=== PATIENT | male | born 1990 | race Hispanic/Latino ===

== ENCOUNTER 2024-09-20 17:01 | Emergency (ER) | payer OTHER, SELFPAY ==
[2024-09-20 17:12] VITALS: BP 137/83; PULSE 74; RESP 14; TEMP 36.6; O2SAT 99; BMI 25.8
--- NOTE | 2024-09-20 17:44 | ED_ITS ---
HPI - Back Pain/Injury General Chief Complaint: Back Pain/Injury Stated Complaint: back pain radiating to groin Time Seen by Provider: 09/20/24 17:23 Source: patient History of Present Illness HPI Narrative: Mr. 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 Patient states a few weeks ago around Thanksgiving while doing CrossFit he injured his left lower back. States that the pain has persisted however about 1 week ago the pain started radiating to his left lower quadrant of his abdomen/groin/scrotum. He denies any swelling or tenderness of his testicles but the pain does linger in the groin region. And his stool when he wipes intermittently over the last few months however it has been constant over the last few days. Denies nausea, vomiting, fevers, chills, dysuria, hematuria, penile discharge, penile bleeding. No numbness or tingling in the groin/saddle anesthesia. Patient denies straining or pain during bowel movement. Related Data Previous Rx's Medication Instructions Recorded methylprednisolone 4 mg tablets in See Rx Instructions PO .COMPLEX 09/20/24 a dose pack (Medrol (Mushtaq)) #21 ea Allergies Allergy/AdvReac Type Severity Reaction Status Date / Time No Known Drug Allergies Allergy Verified 09/20/24 17:11 Review of Systems Review of Systems ROS Unobtainable: All systems reviewed & are unremarkable except as noted in HPI and below Patient History Social History Smoking Status: Unknown if ever smoked Smoking Status: Unknown if ever smoked Exam Narrative Exam Narrative: GENERAL: 34 year old patient appears stated age. Well-developed patient, in no acute distress. HEAD: Atraumatic. Normocephalic. EYES: Extraocular motions intact. No scleral icterus. No injection or drainage. ENT: Nose without bleeding, purulent drainage. NECK: Trachea midline. Cervical ROM intact. CARDIOVASCULAR: Regular rate and rhythm. RESPIRATORY: ?Nonlabored respirations. ?Speaking in clear, full sentences. ?Clear to auscultation. Breath sounds equal bilaterally. No wheezes, rales, or rhonchi. ? GASTROINTESTINAL: Abdomen soft, non-tender, nondistended. : Patient gave verbal consent for exam. No external anal fissures or hemorrhoids. No testicular tenderness, epididymis tenderness, swelling or overlying skin changes. Normal circumcised penis. EXTREMITIES: No edema or joint tenderness. BACK: No CVA tenderness. Patient does have muscle spasm of the left lumbar paraspinal muscle region. No midline bony tenderness. NEURO: AOx3. ?Clear speech. ?Moves all 4 extremities appropriately. SKIN: No rash or erythema of visible areas Initial Vital Signs Initial Vital Signs: Vital Signs Temperature 97.9 F 09/20/24 17:12 Pulse Rate 74 09/20/24 17:12 Respiratory Rate 14 09/20/24 17:12 Blood Pressure 137/83 09/20/24 17:12 Pulse Oximetry 99 09/20/24 17:12 Oxygen Delivery Method Room Air 09/20/24 17:12 Course Orders Ordered: ED Orders 09/20/24 17:59 CT abdomen pelvis w con Stat 09/20/24 18:04 CBC Auto Diff [Complete Blood Count AUTO DIFF] Stat CMP [Comprehensive Metabolic Panel] Stat Lipase Stat Discontinued Medications Ketorolac Tromethamine (Ketorolac 30 Mg/Ml Vial) 15 mg IV NOW ONE Stop: 09/20/24 18:00 Last Admin: 09/20/24 18:19 Dose: 15 mg Documented By: TONY Vital Signs Vital signs: Vital Signs - 8 hr 09/20/24 19:28 Pulse Rate 65 Respiratory Rate 16 Blood Pressure 123/77 Pulse Oximetry 99 Oxygen Delivery Method Room Air MDM - Back Pain/Injury Lab Data 09/20/24 18:04 09/20/24 18:04 Labs: Lab Results 09/20/24 Range/Units 18:04 WBC 6.7 (4.5-11.0) X10^3/uL RBC 4.75 (4.5-5.9) X10^6/uL Hgb 14.4 (13.5-17.5) g/dL Hct 43.0 (41-53) % MCV 90.6 (80-100) fL MCH 30.3 (26-34) PG MCHC 33.5 (30-36) % RDW 13.6 (11.6-14.8) % Plt Count 298 (150-400) X10^3/uL Neut % (Auto) 47.5 L (50-75) % Lymph % (Auto) 41.8 H (25-40) % [place] % (Auto) 6.3 (3-14) % Eos % (Auto) 3.4 (2-4) % Baso % (Auto) 1.0 (0-2) % Neut # (Auto) 3200 (3344-3478) /uL Lymph # (Auto) 2800 (2505-6158) /uL [place] # (Auto) 400 (0-900) /uL Eos # (Auto) 200 (0-450) /uL Baso # (Auto) 100 (0-100) /uL Sodium 140 (137-145) mmol/L Potassium 3.9 (3.4-5.1) mmol/L Chloride 104 (98-107) mmol/L Carbon Dioxide 28 (22-32) mmol/L BUN 13 (9-20) mg/dL Creatinine 1.02 (0.66-1.25) mg/dL Estimated GFR > 60 (>60) mL/min BUN/Creatinine Ratio 12.7 (6-22) Glucose 86 (70-100) mg/dL Calcium 8.7 (8.4-10.2) mg/dL Total Bilirubin 0.5 (0.2-1.3) mg/dL AST 40 (17-59) IU/L ALT 63 H (<50) IU/L Alkaline Phosphatase 72 (38-126) U/L Total Protein 8.2 (6.3-8.2) g/dL Albumin 4.5 (3.5-5.0) g/dL Globulin 3.7 (1.7-4.1) g/dL Albumin/Globulin Ratio 1.2 (1.0-2.8) Lipase 117 (23-300) U/L Urine Dip Bedside Urine Glucose Negative Bedside Urine Bilirubin - Negative Bedside Urine Ketone - Negative Urine Specific [place] 1.010 Bedside Urine Occult Blood - Negative Bedside Urine pH 7.0 Bedside Urine Protein - Negative Bedside Urine Urobilinogen - Negative Bedside Urine Nitrite - Negative Bedside Urine Leukocytes - Negative Esterase MDM Narrative Medical decision making narrative: 34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 His is with him who contributes to the history.. Differential diagnosis includes but is not limited to diverticulitis, diverticulosis, anal fissure, rectal hemorrhoid, lumbar stenosis, lumbar radiculopathy, etc. On exam patient is in no acute distress, nontoxic appearing, vital signs within normal limits. Does have left lumbar paraspinal muscle spasm. He has subjective pain radiating into the groin and testicles. Urinalysis negative for blood or signs of infection. We will proceed with a abdominal labs and CT scan to rule out intra-abdominal abnormality. We will treat pain with Toradol. Patient's pain improved significantly after Toradol. His CT scan reveals broad- based disc bulge at the L5-S1 level causing [id number] left-sided neural foraminal narrowing. No acute vertebral body compression fracture. No other abnormalities were noted on the CT scan in the abdomen or pelvis. Labs overall within normal limits. Normal WBC count 6.7. No anemia with a hemoglobin of 14.4, hematocrit 43.0. CMP overall within normal limits, ALT is slightly elevated at 63. Patient was made aware. Lipase is normal 117. Patient was provided with a CT scan report. Diagnosis of lumbar radiculopathy. 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 He was prescribed a Medrol Dosepak and also recommended ibuprofen, Tylenol, gentle stretching, avoiding heavy lifting. Advised patient to follow up with his PCP regarding bright red blood in his stool as he may benefit from colonoscopy. Patient verbalized understanding of all information, is feeling better, is understanding of the plan and is stable for discharge home. Prescription sent to pharmacy of choice. Discharge Plan Departure Patient Disposition: Home Clinical Impression: Bulging lumbar disc, Acute left lumbar radiculopathy, Blood in stool Instructions: DI for Herniated Disc Activity Restrictions/Additional Instructions: Dear Mr. Sotomayor, Your diagnosis today is disc bulge at the L5-S1 level causing [id number] left-sided neural foraminal narrowing. You also were evaluated for blood in your stool. The remainder of your lab work and your CT scan was reassuring. 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 We have prescribed you a steroid course to help reduce inflammation in the low back. You may start this on 09/21/2024. In addition, please rest, avoid heavy lifting, use ibuprofen/Tylenol if needed for pain. You may also benefit by using warm compress or heating pad in the low back area to help loosen up muscles. Please take Ibuprofen (Motrin/Advil) or Acetaminophen (Tylenol) for pain. These are available over the counter. You may take Ibuprofen 600 mg every 8 hours with food for pain. You may also take Acetaminophen 650 mg every 4-6 hours for pain. Do not exceed 3000 mg of Tylenol a day as this can cause liver damage. Do not drink alcohol with either of these medications. For the blood in your stool, I recommend taking a daily stool softener such as MiraLax to avoid any constipation or straining. Please talk to your primary care doctor about the blood in your stool as you may benefit from colonoscopy for further evaluation. Please follow up with your primary care doctor within the next 2-3 days for ER follow-up. (If you do not have a PCP you can call [phone]. ?to schedule an appointment with an [facility] Primary Care Provider) IF YOU DEVELOP ANY NEW OR WORSENING SYMPTOMS, RETURN TO THE ER! Please read the attached instructions, they highlight more specific treatments and interventions for you at home. Thank you for letting me participate in your care, Karlee Steward PA-C Prescriptions: New methylprednisolone [Medrol (Mushtaq)] 4 mg tablets,dose pack See Rx Instructions .ROUTE .COMPLEX Qty: 21 0RF Rx Instructions: for 6 days Stand Alone Forms: Patient Portal/API/Survey
--- NOTE | 2024-09-20 17:59 | DI.CT.S_ITS ---
PROCEDURE: CT ABDOMEN PELVIS W CON INDICATIONS: Left low back pain radiating into the groin; bloody stool TECHNIQUE: After the administration of intravenous contrast, axial sections acquired from the lung bases to the pubic symphysis. Coronal and sagittal reformats were performed. For radiation dose reduction, the following was used: automated exposure control, adjustment of mA and/or kV according to patient size. COMPARISON: None. FINDINGS: Image quality: Diagnostic. Lower Chest: No significant findings. ABDOMEN: Liver: No solid mass. Gallbladder: No radiopaque gallstones or wall thickening. Biliary ducts: No biliary dilation. Pancreas: No ductal dilation. Spleen: Size is within normal limits. Adrenal Glands: No adrenal nodules. Kidneys and Ureters: No hydronephrosis. No solid mass. No complex renal cystic lesion which requires follow up. Stomach and Bowel: There is no bowel obstruction. No gastric or small bowel wall thickening. Appendix is not definitively identified. No inflammatory changes are noted in right lower quadrant to suggest acute appendicitis. No colonic wall thickening. No mesenteric fat stranding. No abscess collection. Peritoneum: No abnormal intraperitoneal fluid. No free air. Ventral Wall: No significant ventral hernia. Abdominal Nodes: No retroperitoneal or mesenteric adenopathy by size criteria. Vessels: Aorta and inferior vena cava are normal in size. PELVIS: Pelvic Organs: Unremarkable. Bladder: No bladder wall thickening, accounting for underdistention. Pelvic Nodes: No enlarged lymph nodes. Miscellaneous: No inguinal hernias are seen. Bones: No aggressive osseous abnormality. No acute vertebral body compression fracture. Broad-based disc bulge at L5-S1 level is seen with suggestion of left-sided neural foraminal narrowing. IMPRESSION: 1. No acute inflammatory process is seen in abdomen or pelvis. No free fluid or free air. No evidence of acute appendicitis. 2. Broad-based disc bulge at L5-S1 level causing [id number] left-sided neural foraminal narrowing. No acute vertebral body compression fracture. Dictated by: Jeffry Henriquez M.D. on 09/20/2024 at 18:22 Approved by: Jeffry Henriquez M.D. on 09/20/2024 at 18:26
[2024-09-20 18:17] LABS: Add Manual Diff / Slide Review NO; Basophils Absolute Auto 100 /uL (0-100); Eosinophils Absolute Auto 200 /uL (0-450); Eosinophils Percent Auto 3.4 % (2-4); Hemoglobin 14.4 g/dL (13.5-17.5); Lymphocytes Absolute Auto 2800 /uL (1100-4500); Lymphocytes Percent Auto 41.8 % (25-40); Mean Corpuscular HGB Conc 33.5 % (30-36); Mean Corpuscular Hemoglobin 30.3 PG (26-34); Mean Corpuscular Volume 90.6 fL (80-100); Monocytes Absolute Auto 400 /uL (0-900); Monocytes Percent Auto 6.3 % (3-14); Neutrophils Absolute Auto 3200 /uL (1500-7000); Neutrophils Percent Auto 47.5 % (50-75); Platelet Count 298 X10^3/uL (150-400); Red Blood Cell Count 4.75 X10^6/uL (4.5-5.9); Red Cell Distribution Width 13.6 % (11.6-14.8); White Blood Cell Count 6.7 X10^3/uL (4.5-11.0)
[2024-09-20] MEDS: KETOROLAC 30 MG/ML VIAL 15 MG IV (18:19)
[2024-09-20 18:24] LABS: Alanine Aminotransferase 63 IU/L (<50); Albumin 4.5 g/dL (3.5-5.0); Albumin Globulin Ratio 1.2 (1.0-2.8); Alkaline Phosphatase 72 U/L (38-126); Aspartate Aminotransferase 40 IU/L (17-59); BUN Creatinine Ratio 12.7 (6-22); Bilirubin Total 0.5 mg/dL (0.2-1.3); Blood Urea Nitrogen 13 mg/dL (9-20); Calcium 8.7 mg/dL (8.4-10.2); Carbon Dioxide 28 mmol/L (22-32); Chloride 104 mmol/L (98-107); Estimated Glomerular Filt Rate > 60 mL/min (>60); Globulin 3.7 g/dL (1.7-4.1); Glucose 86 mg/dL (70-100); HEMOLYSIS < 15 (0-50); Lipase 117 U/L (23-300); Potassium 3.9 mmol/L (3.4-5.1); Sodium 140 mmol/L (137-145); Total Protein 8.2 g/dL (6.3-8.2)
[2024-09-20 19:28] VITALS: BP 123/77; PULSE 65; RESP 16; O2SAT 99
== END 2024-09-20 19:29 | disposition home or self-care (01) ==
PROVIDERS: Emergency Provider Physician Assistant
DX: M51.379 Other intervertebral disc degeneration, lumbosacral region without mention of lumbar back pain or lower extremity pain (principal); M54.16 Radiculopathy, lumbar region; K92.1 Melena; M48.07 Spinal stenosis, lumbosacral region
CPT/HCPCS: 36415; 74177; 80053; 81003; 83690; 85025; 96374; 99284; J1885; Q9967